=== PATIENT | female | born 2000 | race Hispanic/Latino ===

== ENCOUNTER 2021-12-31 22:20 | Emergency (ER) | payer BC ==
[~2021-12-31] VITALS: Ht 162.6 cm; Wt 112.2 kg
--- OUTSIDE RECORDS SUMMARY | 2021-12-31 22:28 | XMS ---
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 Tor VISIT COUNT (12 MO.) 1 BRADEN Santos TOTAL 1 NOTE: Visits indicate total known visits. ED/UCC VISIT TRACKING (12 MO.) 12/31/2021 22:22 [facility] Wilson [place] TYPE: Emergency COMPLAINT: - URINE PROBLEM INPATIENT VISIT TRACKING (12 MO.) No inpatient visits to display in this time frame [email or web address]
[2021-12-31] MEDS ORDERED: PRENATAL 19 CH1 EACH PO (22:40)
== END 2021-12-31 23:35 | disposition home or self-care (01) ==
LOC: ED 22:20
DX: O99.891 Other specified diseases and conditions complicating pregnancy (principal); R30.0 Dysuria; Z3A.14 14 weeks gestation of pregnancy
CPT/HCPCS: 81001; 99283

== ENCOUNTER 2022-01-04 21:21 | Emergency (ER) | payer BC ==
[~2022-01-04] VITALS: Ht 162.6 cm; Wt 112.0 kg
[~2022-01-04 21:21] MED LIST: PRENATAL 19 CH1 EACH PO
--- OUTSIDE RECORDS SUMMARY | 2022-01-04 21:30 | XMS ---
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 EKeli VISIT COUNT (12 MO.) 2 [facility] TOTAL 2 NOTE: Visits indicate total known visits. ED/UCC VISIT TRACKING (12 MO.) 01/04/2022 21:23 [facility] Wilson [place] TYPE: Emergency COMPLAINT: - POSS HEMORRHOID 12/31/2021 22:22 BR[facility] Wilson OR TYPE: Emergency COMPLAINT: - URINE PROBLEM DIAGNOSES: - Dysuria - Frequency of micturition - 14 weeks gestation of - Other specified diseases and conditions complicating INPATIENT VISIT TRACKING (12 MO.) No inpatient visits to display in this time frame [email or web address]
[2022-01-04] MEDS ORDERED: ANUSOL-HC30 GM PR (23:20)
[2022-01-04] MEDS ORDERED: DIBUCAINE28 GM PR (23:20)
== END 2022-01-04 23:35 | disposition home or self-care (01) ==
LOC: ED 21:21
DX: O22.42 Hemorrhoids in pregnancy, second trimester (principal); Z79.899 Other long term (current) drug therapy; Z3A.14 14 weeks gestation of pregnancy
CPT/HCPCS: 99282

== ENCOUNTER 2022-06-20 13:22 | Inpatient (IN) | payer BC, OTHER ==
[~2022-06-20] VITALS: Ht 162.6 cm; Wt 113.4 kg
[~2022-06-20 13:22] MED LIST changes: +ANUSOL-HC30 GM PR; +DIBUCAINE28 GM PR
--- NOTE | 2022-06-20 16:15 | NUR ---
RT COLLECTED RAPID COVID 19 SWAB AT THIS TIME WITH NO COMPLICATIONS.
--- NOTE | 2022-06-20 17:42 | NUR ---
06/20/22 1742 Catalina Campos 1735 PATIENT ARRIVES TO [facility] [address] A[address]KE. RESP EVEN AND UNLABORED, ROOM AIR SATS >98%. PATIENT DENIES PAIN OR NAUSEA. ONLY COMPLAINS OF ITCHING MEDICATED WITH BENADRYL BY STEVO JEAN BAPTISTE.
--- NOTE | 2022-06-21 09:47 | PR ---
[facility] [address] [facility] [place], [place] [address] Signed PP Progress Notes Datetime Report Generated by CPN: 06/21/2022 09:47 SUBJECTIVE: [id number] Pain: Within Normal Limits Nausea/Vomiting: Denies Vital Signs: [id number] Vital Signs: Reviewed; Within Normal Limits Notable Details: PP Hgb/Hct = 10.3/30.9 Abdomen/Uterus: Normal Lochia: Normal Extremities: Normal Incision: Normal IMPRESSION/PLAN/PROCEDURES: [id number] Impression: Normal Progression Plan: Continue Present Management Procedures: None Progress Notes: Doing well, without complaint. Tolerating food well, up sitting in chair, has been moving well, voided without diffculty. Signing Physician: Matt Amor MD Copies: ~ *Electronically Signed* 06/21/22 0947 MATT AMOR MD PATIENT NAME: BOB IRWINIDIANA PROGRESS NOTE DATE OF : [birth year] PHYSICIAN: MATT AMOR MD RPT #: [id number] REPORT IS CONFIDENTIAL AND NOT TO BE RELEASED WITHOUT AUTHORIZATION
--- NOTE | 2022-06-22 09:48 | PR ---
[facility] [address] [facility] [place] [address] Signed PP Progress Notes Datetime Report Generated by CPN: 06/22/2022 09:47 SUBJECTIVE: [id number] Pain: Within Normal Limits Nausea/Vomiting: Denies Vital Signs: [id number] Vital Signs: Reviewed; Within Normal Limits Notable Details: PP Hgb/Hct = 10.3/30.9 Abdomen/Uterus: Normal Lochia: Normal Extremities: Normal Incision: Normal IMPRESSION/PLAN/PROCEDURES: [id number] Impression: Normal Progression Plan: Discharge Procedures: None Progress Notes: Doing well, without complaint, ready to go home. Signing Physician: Matt Amor MD Copies: ~ *Electronically Signed* 06/22/22 0947 MATT AMOR MD PATIENT NAME: BOB IWRINA PROGRESS NOTE DATE OF : [birth year] PHYSICIAN: MATT AMOR MD RPT #: [id number] REPORT IS CONFIDENTIAL AND NOT TO BE RELEASED WITHOUT AUTHORIZATION
--- NOTE | 2022-06-22 09:51 | OR ---
[facility] [address] [facility] [address] [place] [address] Signed DATE OF OPERATION: 06/20/2022 SURGEON: Matt Lal MD The patient of Dr. Lal. PREOPERATIVE DIAGNOSIS: Term labor, insulin-dependent diabetes, and macrosomia. POSTOPERATIVE DIAGNOSIS: Term labor, insulin-dependent diabetes, and macrosomia. PROCEDURE: Primary low transverse segment section, delivery of live male infant. PRIMER SUPERVISOR: Dr. Ede Phillips. ANESTHESIA: Spinal. ESTIMATED BLOOD LOSS: 700 mL. COMPLICATIONS: None. DRAINS: Sibley to bladder. FINDINGS: Live male infant in the NANO presentation with Apgars 9 and 9. Weight 9 pounds 1 ounces. Normal uterus, normal tubes and ovaries bilateral. DESCRIPTION OF PROCEDURE: The patient was brought to the operating room, placed in supine position. After adequate spinal anesthesia was obtained, she was prepped and draped in usual sterile fashion. Sibley catheter was placed in the bladder. A Pfannenstiel skin incision was made with scalpel and extended through subcutaneous tissue with the Bovie. The fascia was nicked with scalpel and extended transverse fashion using curved scissors. The Electronically Signed By: MATT LAL MD 06/22/22 0951 PATIENT NAME: BOB IRWINIDIANA OPERATIVE REPORT DATE OF : [birth year] REPORT #: [id number] PHYSICIAN: MATT LAL MD PCP: NO PRIMARY CARE PHYSICIAN REPORT IS CONFIDENTIAL AND NOT TO BE RELEASED WITHOUT AUTHORIZATION [facility] [address] [place], [place] [address] Signed underlying abdominal musculature was bluntly and sharply from the fascia above and below the incision. The abdominal musculature was bluntly and sharply along the midline. The peritoneum was grasped with hemostats, elevated, nicked with curved scissors and extended in a vertical fashion using curved scissors. The Cesar self-retaining retractor was inserted into the incision and tightened in place. The lower uterine segment was identified. Bladder noted to be well below the area of dissection, so a small incision was made in midline lower uterine segment using a scalpel. A finger dissection was used to extend the incision in transverse fashion. Large amount of light meconium-stained fluid came from the incision. The was noted to be in vertex presentation. The head easily delivered from the incision. The rest of the infant was easily delivered from the incision. The cord doubly clamped and cut. The passed off table in good condition awaiting nurse. The placenta was manually removed. Uterine cavity explored with a lap pad to remove any retained membranes. An angle stitch of 0 Monocryl was placed at one in the incision and a running locking stitch of 0-Monocryl starting at the other end used to close the incision. A second running stitch of 0 Monocryl was used to imbricate the first layer. Good hemostasis was noted. The entire pelvis was irrigated, suctioned, and examined, and any superficial bleeding spots cauterized with the Bovie and good hemostasis was noted. The Cesar retractor was removed. The incision reinspected and then the anterior wall peritoneum closed using running stitch of 2-0 Vicryl suture. The abdominal musculature was reapproximated using interrupted stitches of 0 Vicryl suture. The abdominal wall was irrigated, suctioned, and examined, and any bleeding spots cauterized with the Bovie. The fascia was then closed using two running stitch of 0 Vicryl suture meeting in the midline. Subcutaneous tissue was irrigated, suctioned, and examined, and any bleeding spots cauterized with the Bovie. The subcutaneous tissue was then closed using interrupted stitches of 3-0 Vicryl suture and the skin reapproximated using skin clips. The patient tolerated the procedure well, went to recovery room in good condition. The sponge, needle, and instrument count correct at the end of the procedure. Matt Lal MD MJB/MODL /[id number] Electronically Signed By: MATT LAL MD 06/22/22 0951 PATIENT NAME: BOB IRWIN OPERATIVE REPORT DATE OF : [birth year] REPORT #: [id number] PHYSICIAN: MATT LAL MD PCP: NO PRIMARY CARE PHYSICIAN REPORT IS CONFIDENTIAL AND NOT TO BE RELEASED WITHOUT AUTHORIZATION [facility] [address] [facility] [place] [address] Signed Copies: ~ Electronically Signed By: MATT LAL MD 06/22/22 0951 PATIENT NAME: ESCALANTEBOB CASTAÑEDA OPERATIVE REPORT DATE OF : [birth year] REPORT #: [id number] PHYSICIAN: MATT LAL MD PCP: NO PRIMARY CARE PHYSICIAN REPORT IS CONFIDENTIAL AND NOT TO BE RELEASED WITHOUT AUTHORIZATION
== END 2022-06-22 11:44 | disposition home or self-care (01) | DRG 788 ==
LOC: FBCO 13:22 → FBC 16:02
PROVIDERS: ADMIT General Practice; ATTEND General Practice
PROC: 10D00Z1 Extraction of Products of Conception, Low, Open Approach (ICD-10-PCS; principal; 2022-06-20 16:48)
DX: O77.0 Labor and delivery complicated by meconium in amniotic fluid (principal); Z3A.38 38 weeks gestation of pregnancy; Z37.0 Single live birth; Z67.40 Type O blood, Rh positive; O36.63X0 Maternal care for excessive fetal growth, third trimester, not applicable or unspecified; O24.92 Unspecified diabetes mellitus in childbirth; Z79.4 Long term (current) use of insulin; O99.02 Anemia complicating childbirth
CPT/HCPCS: 01961; 36415; 59025; 64488; 76942; 85027; 86850; 86900; 86901; 87502; A9270; C9803; G0463; J0690; J1100; J1644; J2001; J2274; J2405; J2590; J2795; J3010; J7121; U0003